=== PATIENT | female | born 1975 | race Hispanic/Latino ===

== ENCOUNTER 2017-12-04 18:41 | Emergency (ER) | payer MEDICARE, BC ==
[2017-12-04 19:32] VITALS: BMI 54.8
[2017-12-04 19:33] VITALS: BP 0/0; PULSE 0; RESP 0; O2SAT 0
--- NOTE | 2017-12-04 20:45 | ED PDOC ---
Arrival/HPI - General Chief Complaint: Cardiac Arrest Time Seen by Provider: 12/04/17 19:02 Historian: EMS - Critical Care Critical Care Minutes: 60 minutes - History of Present Illness Narrative History of Present Illness (Text): 12/04/17 22:16 A 42 year old female, with no known past medical history, is brought into the emergency department via EMS with a complaint of cardiopulmonary arrest. BLS was called for patient's complaint of shortness of breath. Upon arrival, the patient had extreme dyspnea and went unresponsive. Basic cardiac life support was initiated at the scene. AED was placed on the patient with no shock advised. Upon arrival to emergency department, CPR was continued. Emergency department staff initiated ACLS protocol. The patient was intubated with 7.5 ET Tube with positive color change and CO2 capnography. Copious amounts of fluid was coming out of pts nose ad mouth. The patient remained asystolic throughout her stay in emergency department. Patient was pronounced at 1900 hours and family in emergency department notified. HPI and ROS limited due to acuity of patient's condition. PMD: Dr. Jacquelyn Cee Time/Duration: Prior to Arrival Symptom Onset: Sudden Symptom Course: Unchanged Activities at Onset: Rest, Light Context: Home Past Medical History - Provider Review Nursing Documentation Reviewed: Yes - Cardiac Hx Cardiac Disorders: Yes Hx Congestive Heart Failure: Yes Other/Comment: Aortic valve prolapse - Pulmonary Hx Asthma: Yes Hx Bronchitis: Yes Hx Chronic Obstructive Pulmonary Disease (COPD): Yes - Hematological/Oncological Hx Blood Disorders: Yes Hx Lymphoma: Yes - Psychiatric Hx Substance Use: No - Surgical History Other/Comment: stem cell transplant - Anesthesia Hx Anesthesia: Yes Hx Anesthesia Reactions: No Hx Malignant Hyperthermia: No Family/Social History - Physician Review Nursing Documentation Reviewed: Yes Family/Social History: No Known Family HX Smoking Status: Unknown If Ever Smoked Hx Alcohol Use: No Hx Substance Use: No Allergies/Home Meds Allergies/Adverse Reactions: Allergies Unobtainable Allergy (Verified 12/04/17 19:23) Review of Systems - Physician Review All systems were reviewed & negative as marked: Yes - Review of Systems Systems not reviewed;Unavailable: Acuity of Condition Physical Exam Vital Signs Reviewed: Yes Vital Signs Pulse Resp BP Pulse Ox 12/04/17 18:41 0 L 0 L 0/0 L 0 L Blood Pressure: Other (0) Pulse: Pulseless Respiratory Rate: Mechanically Ventilated (0) Appearance: Positive for: Other (Unresponsive) Finger Stick Blood Glucose: 268 - Systems Exam Respiratory/Chest: No: Decreased Breath Sounds (Bilateral breath sounds with mechanical ventilation. ) Cardiovascular: No: Regular Rate and Rhythm (No heart beat. ) Abdomen: Present: Distention (Soft.) Lower Extremity: Present: Edema (Bilateral lower extremity edema. ) Skin: Present: Pale (and modeled.) Medical Decision Making ED Course and Treatment: PROCEDURE: INTUBATION Performed by the emergency provider Consent: Discussion of the risks, benefits, and alternatives to the procedure, along with informed consent was precluded by the urgency of the procedure and the patient condition. Timeout: A timeout to verify the correct patient, procedure, and site was performed. Indication: cardiac arrest Pre-oxygenation: [id number] Medications: See MAR for details. ETT Size: 7.5 Confirmation: Cords directly visualized as tube passed, good bilateral breath sounds, positive CO2 detector color change, tube fogging, adequate chest rise, improving pulse oximetry reading, improved skin color, and absence of gastric sounds,. ETT Secured: The cuff was inflated and the tube was secured appropriately at a distance of 22 cm at the lip. Post-Procedure: There were no immediate complications. CXR Confirmation: No 12/04/17 22:[address] Jorgensen who is covering for patient's PMD, Dr. Red Cee. ampoule examiner was called. General Counsel Nicolas released the body. - Refer to nurse documentation for additional information. - Scribe Statement The provider has reviewed the documentation as recorded by the Scribe Inga Rodriguez Provider Scribe Attestation: All medical record entries made by the Scribe were at my direction and personally dictated by me. I have reviewed the chart and agree that the record accurately reflects my personal performance of the history, physical exam, medical decision making, and the department course for this patient. I have also personally directed, reviewed, and agree with the discharge instructions and disposition. Disposition/Present on Arrival - Present on Arrival Any Indicators Present on Arrival: No History of DVT/PE: No History of Uncontrolled Diabetes: No Urinary Catheter: No History of Decub. Ulcer: No History Surgical Site Infection Following: None - Disposition Have Diagnosis and Disposition been Completed?: Yes Diagnosis: Cardiac arrest Disposition: WITH WITHOUT AUTOPSY Disposition Time: 19:00 Condition: Referrals: Darshan Sal MD [Primary Care Provider] - Follow up with primary Forms: [employer] (Slovak)
== END 2017-12-04 21:45 ==
LOC: MERGE 18:41 → ED 18:41
DX: I46.9 Cardiac arrest, cause unspecified (principal)